=== PATIENT | female | born 1970 | race Hispanic/Latino ===

== ENCOUNTER → 2018-10-23 | Outpatient (CLI) | payer OTHER | END | disposition home or self-care (01) | LOC: SHCH 10:00 | PROVIDERS: ATTEND Internal Medicine Cardiovascular Disease | DX: R94.31 Abnormal electrocardiogram [ECG] [EKG] (principal) | CPT/HCPCS: 93306 ==

== ENCOUNTER 2018-11-09 12:25 | Observation (INO) | payer OTHER ==
[~2018-11-09] VITALS: Ht 162.6 cm; Wt 68.9 kg
[2018-11-09 14:13] LABS: BASOPHILS % (AUTO) 0.5 % (0.0-5.0); EOSINOPHILS % (AUTO) 1.6 % (0.0-8.0); HEMATOCRIT 42.8 % (36-48); LYMPHOCYTES % (AUTO) 18.1 % (21.0-51.0); MEAN CORPUSCULAR HEMOGLOBIN 30.9 pg (27.0-33.0); MEAN CORPUSCULAR HGB CONC 32.9 g/dL (32.0-36.0); MEAN CORPUSCULAR VOLUME 93.8 fL (79-99); MONOCYTES % (AUTO) 5.1 % (3.0-13.0); NEUTROPHILS % (AUTO) 74.7 % (40.0-77.0); NUCLEATED RED BLOOD CELLS 0.1 % (0.0-0.19); PLATELET COUNT (AUTO) 283 K/uL (130-400); RED BLOOD CELL COUNT(AUTO) 4.57 MIL/uL (4.00-5.50); RED CELL DISTRIBUTION WIDTH 13.6 % (11.0-15.5); WHITE BLOOD COUNT (AUTO) 8.8 K/uL (4.8-10.8)
[2018-11-09] MEDS ORDERED: ONDANSETRON HCL 4 MG/2 ML VIAL ONE (14:19)
[2018-11-09] MEDS ORDERED: KETOROLAC TROMETHAMINE 30MG/ML ONE ×2 (14:19→22:51)
[2018-11-09] MEDS ORDERED: ZOSYN 3.375GM+NS 50ML 50 ML IV ONE (14:19)
[2018-11-09] MEDS ORDERED: SODIUM CHLORIDE 0.9% 50 ML IV ONE (14:20)
[2018-11-09] MEDS ORDERED: LACTATED RINGERS 1000ML 1,000 ML IV ONE (14:20)
[2018-11-09 14:41] LABS: POTASSIUM 3.6 mmol/L (3.5-5.1)
[2018-11-09 14:46] LABS: ALBUMIN 3.6 g/dL (3.5-5.0); BILIRUBIN,TOTAL 0.5 mg/dL (0.2-1.0); TOTAL PROTEIN, SERUM 7.2 g/dL (6.0-8.3)
--- NOTE | 2018-11-09 15:00 | NUR ---
DIRECT ADMIT PATIENT RECEIVED FROM ER A DIRECT ADMIT FROM DR. HOLLEY. BLOOD HAS BEEN DRAWN IN ER AND IV HAS BEEN STARTED. SHE WAS MEDICATED FOR PAIN PRIOR TO ARRIVAL AND DENIES PAIN AT THIS TIME. SHE HAS BEEN ORIENTED TO ROOM AND USE OF CALL LIGHT.
[2018-11-09 15:35] VITALS: BP 131/86
[2018-11-09] MEDS ORDERED: MORPHINE SULFATE 2 MG/ML 1ML SYG IVP PRN (18:00)
[2018-11-09] MEDS: LACTATED RINGERS 1000ML 1,000 ML IV SCH (18:00)
[2018-11-09 19:20] VITALS: BP 126/77
[2018-11-09] MEDS: ZOSYN 3.375GM+NS 50ML 50 ML IV SCH (20:35)
[2018-11-09] MEDS: ONDANSETRON HCL 4 MG/2 ML VIAL IVP PRN (22:59)
[2018-11-09 23:36] VITALS: BP 110/72
[2018-11-10] VITALS (24 sets, daily range): BP systolic 102–148; BP diastolic 60–90
[2018-11-10] MEDS: LACTATED RINGERS 1000ML 1,000 ML IV SCH ×3 (01:26→16:09)
[2018-11-10 04:41] LABS: HEMATOCRIT 36.5 % (36-48); MEAN CORPUSCULAR HEMOGLOBIN 31.3 pg (27.0-33.0); MEAN CORPUSCULAR HGB CONC 33.6 g/dL (32.0-36.0); MEAN CORPUSCULAR VOLUME 93.4 fL (79-99); PLATELET COUNT (AUTO) 247 K/uL (130-400); RED BLOOD CELL COUNT(AUTO) 3.91 MIL/uL (4.00-5.50); RED CELL DISTRIBUTION WIDTH 13.2 % (11.0-15.5); WHITE BLOOD COUNT (AUTO) 8.5 K/uL (4.8-10.8)
[2018-11-10 04:51] LABS: POTASSIUM 3.7 mmol/L (3.5-5.1)
[2018-11-10] MEDS: ZOSYN 3.375GM+NS 50ML 50 ML IV SCH ×3 (05:24→21:18)
--- NOTE | 2018-11-10 07:41 | NUR ---
TO OR PATIENT TRANSFERRED TO OR HOLDING ACCOMPANIED BY SPOUSE. SHE IS IN STABLE CONDITION.
[2018-11-10] MEDS ORDERED: MIDAZOLAM HCL 1 MG/ML 2ML VIAL ONE (07:52)
[2018-11-10] MEDS ORDERED: DEXAMETHASONE SOD PHOSPHATE 10MG/ML 1ML VIAL ONE (07:52)
[2018-11-10] MEDS ORDERED: LIDOCAINE PF 2% 5ML ABBOJECT ONE (07:52)
[2018-11-10] MEDS ORDERED: NEOSTIGMINE 5MG/5ML SYR IV ONE (07:53)
[2018-11-10] MEDS ORDERED: FENTANYL CITRATE PF 50 MCG/1 ML 2ML VIAL ONE (07:53)
[2018-11-10] MEDS ORDERED: PROPOFOL 10 MG/ML 20ML VIAL IV ONE (07:53)
[2018-11-10] MEDS ORDERED: GLYCOPYRROLATE 1 MG/5 ML SYRINGE ONE (07:53)
[2018-11-10] MEDS ORDERED: ONDANSETRON HCL 4 MG/2 ML VIAL ONE (07:53)
[2018-11-10] MEDS ORDERED: ROCURONIUM 10MG/1ML SYR 10 MG/ML ML ONE (07:54)
[2018-11-10] MEDS ORDERED: MEPERIDINE-PF 25 MG/ML SYG ONE (09:19)
[2018-11-10] MEDS: KETOROLAC TROMETHAMINE 30MG/ML IV PRN ×2 (09:50→21:18)
--- NOTE | 2018-11-10 10:14 | NUR ---
POST SURGERY PATIENT RECEIVED FROM PACU IN STABLE CONDITION. FAMILY IS PRESENT IN ROOM. ALL HAVE BEEN REORIENTED TO ROOM AND USE OF CALL LIGHT. POST OP VITAL SIGNS HAVE BEEN INITIATED. DRESSINGS TO ABDOMEN ARE CLEAN AND DRY. BED IS IN LOWEST POSITION AND LOCKED. SHE IS DUE TO VOID.
[2018-11-10] MEDS: ONDANSETRON HCL 4 MG/2 ML VIAL IVP PRN (12:04)
[2018-11-11] MEDS: LACTATED RINGERS 1000ML 1,000 ML IV SCH (02:21)
[2018-11-11 03:40] VITALS: BP 117/70
[2018-11-11] MEDS: ZOSYN 3.375GM+NS 50ML 50 ML IV SCH (05:21)
[2018-11-11] MEDS: KETOROLAC TROMETHAMINE 30MG/ML IV PRN (05:26)
[2018-11-11 07:46] VITALS: BP 132/77
--- NOTE | 2018-11-11 10:00 | NUR ---
SURGEON DR. HOLLEY IN TO SEE PATIENT. NEW ORDERS RECEIVED FOR DISCHARGE.
[2018-11-11] MEDS ORDERED: ACET1TAB12 PO (10:11)
--- NOTE | 2018-11-11 10:55 | NUR ---
INSTRUCTIONS DISCHARGE INSTRUCTIONS GIVEN TO PATIENT AND FAMILY USING TEACH BACK. IV HAS BEEN REMOVED WITH TIP INTACT. DIRECT PRESSURE APPLIED UNTIL BLEEDING CONTROLLED THEN SITE COVERED WITH GAUZE AND SECURED WITH TAPE. NEW PRESCRIPTION PLACED IN PACKET ALONG WITH ALL PRINTED INSTRUCTIONS. F/U APPOINTMENT MADE BY DR. HOLLEY. NO QUESTIONS OR CONCERNS VOICED.
== END 2018-11-11 11:05 | disposition home or self-care (01) ==
LOC: EDH 12:25 → EDHIP 13:50 → 4BH 14:49
PROVIDERS: ADMIT Surgery; ATTEND Surgery
DX: K80.00 Calculus of gallbladder with acute cholecystitis without obstruction (principal); G43.909 Migraine, unspecified, not intractable, without status migrainosus; F32.9 Major depressive disorder, single episode, unspecified; H40.9 Unspecified glaucoma
CPT/HCPCS: 36415 ×2; 47562; 80048; 80053; 85025; 85027; 88304; 96365; 96366 ×3; 96375 ×2; 96376 ×2; 99284; A4450; C1769 ×4; G0378 ×45; J1100; J1885 ×5; J2001; J2175; J2250; J2405 ×4; J2543 ×6; J2704; J2710; J3010; J3490; J7030; J7120 ×7

== ENCOUNTER 2020-04-26 01:10 | Emergency (ER) | payer OTHER ==
[~2020-04-26 01:10] MED LIST: ACET1TAB12 PO
[2020-04-26 03:22] LABS: RAPID GROUP A STREP NEGATIVE (NEGATIVE)
[2020-04-26 03:26] LABS: BASOPHILS % (AUTO) 0.2 % (0.0-5.0); EOSINOPHILS % (AUTO) 0.1 % (0.0-8.0); HEMATOCRIT 43.8 % (36-48); LYMPHOCYTES % (AUTO) 7.8 % (21.0-51.0); MEAN CORPUSCULAR HEMOGLOBIN 31.4 pg (27.0-33.0); MEAN CORPUSCULAR HGB CONC 32.6 g/dL (32.0-36.0); MEAN CORPUSCULAR VOLUME 96.1 fL (79-99); MONOCYTES % (AUTO) 2.9 % (3.0-13.0); NEUTROPHILS % (AUTO) 88.3 % (40.0-77.0); PLATELET COUNT (AUTO) 303 K/uL (130-400); RED BLOOD CELL COUNT(AUTO) 4.56 MIL/uL (4.00-5.50); RED CELL DISTRIBUTION WIDTH 13.2 % (11.0-15.5); WHITE BLOOD COUNT (AUTO) 12.2 K/uL (4.8-10.8)
[2020-04-26 03:35] LABS: CREATININE 0.9 mg/dL (0.5-1.5); POTASSIUM 4.8 mmol/L (3.5-5.1)
[2020-04-26 03:40] LABS: ALBUMIN 3.6 g/dL (3.5-5.0); BILIRUBIN,TOTAL 0.2 mg/dL (0.2-1.0); TOTAL PROTEIN, SERUM 7.4 g/dL (6.0-8.3)
[2020-04-26] MEDS ORDERED: SODIUM CHLORIDE 0.9% 1000ML 1,000 ML IV ONE (04:38)
[2020-04-26] MEDS ORDERED: IOHEXOL-350 75 ML VIAL IV ONE ×2 (04:41→05:25)
== END 2020-04-26 08:03 | disposition home or self-care (01) ==
LOC: EDH 01:10
DX: J40 Bronchitis, not specified as acute or chronic (principal); R06.00 Dyspnea, unspecified; Z20.828 Contact with and (suspected) exposure to other viral communicable diseases; F31.9 Bipolar disorder, unspecified; G43.909 Migraine, unspecified, not intractable, without status migrainosus; I10 Essential (primary) hypertension
CPT/HCPCS: 36415; 71045; 71275; 80053; 82550; 83605 ×2; 83880; 84484; 85025; 87804 ×2; 87880; 93005; 99285; J7030; Q9967; U0003

== ENCOUNTER → 2020-06-16 | Outpatient (CLI) | payer OTHER | END | disposition home or self-care (01) | LOC: SHCH 10:28 | PROVIDERS: ATTEND Internal Medicine Cardiovascular Disease | DX: I11.9 Hypertensive heart disease without heart failure (principal) | CPT/HCPCS: 93306 ==

== ENCOUNTER → 2020-06-16 | Outpatient (CLI) | payer OTHER | END | disposition home or self-care (01) | LOC: RAH 10:26 | PROVIDERS: ATTEND Internal Medicine Cardiovascular Disease | DX: Z13.6 Encounter for screening for cardiovascular disorders (principal) | CPT/HCPCS: 75571 ==

== ENCOUNTER → 2020-09-07 | Outpatient (CLI) | payer OTHER | END | disposition home or self-care (01) | LOC: RAH 13:23 | PROVIDERS: ATTEND Family Medicine | DX: R92.2 Inconclusive mammogram (principal); R92.8 Other abnormal and inconclusive findings on diagnostic imaging of breast; N63.20 Unspecified lump in the left breast, unspecified quadrant | CPT/HCPCS: 76641; 77065 ==

== ENCOUNTER → 2020-09-24 | Outpatient (CLI) | payer OTHER ==
[2020-09-24 09:07] LABS: INR 0.93 (0.85-1.15); PARTIAL THROMBOPLASTIN TIME 26.4 SEC (26.3-35.5); PROTHROMBIN TIME 10.1 SEC (9.6-11.6)
--- NOTE | 2020-09-24 09:30 | NUR ---
US GUIDED BIOPSY OF LEFT BREAST MASS PROCEDURE PERFORMED BY DR. LOOMIS. PUNCTURE SITE LEFT LATERAL BREAST AND PATIENT TOLERATED PROCEDURE WELL. SPECIMEN X 7 COLLECTED AND SENT TO LAB. TISSUE MARKER DEPLOYED TO BIOPSY SITE. END OF PROCEDURE AT 0950. BIOPSY NEEDLE REMOVED AND DRESSING APPLIED. NO BLEEDING NOTED. DISCHARGE INSTRUCTIONS GIVEN TO PATIENT AND VERBALIZED UNDERSTANDING. DISCHARGED AMBULATORY STABLE @1010, AAO X 3 WITH NO C/O PAIN.
== END | disposition home or self-care (01) ==
LOC: RAH 07:52
PROVIDERS: ATTEND Family Medicine
DX: D24.2 Benign neoplasm of left breast (principal)
CPT/HCPCS: 19083; 36415; 85610; 85730

== ENCOUNTER 2020-11-03 17:59 | Emergency (ER) | payer OTHER ==
[2020-11-03 18:30] LABS: BASOPHILS % (AUTO) 0.5 % (0.0-5.0); EOSINOPHILS % (AUTO) 3.8 % (0.0-8.0); HEMATOCRIT 44.4 % (36-48); LYMPHOCYTES % (AUTO) 25.9 % (21.0-51.0); MEAN CORPUSCULAR HEMOGLOBIN 31.6 pg (27.0-33.0); MEAN CORPUSCULAR HGB CONC 34.5 g/dL (32.0-36.0); MEAN CORPUSCULAR VOLUME 91.7 fL (79-99); MONOCYTES % (AUTO) 6.4 % (3.0-13.0); NEUTROPHILS % (AUTO) 63.2 % (40.0-77.0); PLATELET COUNT (AUTO) 295 K/uL (130-400); RED BLOOD CELL COUNT(AUTO) 4.84 MIL/uL (4.00-5.50); WHITE BLOOD COUNT (AUTO) 9.1 K/uL (4.8-10.8)
[2020-11-03 18:44] LABS: CREATININE 1.1 mg/dL (0.5-1.5); POTASSIUM 3.6 mmol/L (3.5-5.1)
[2020-11-03] MEDS ORDERED: KETOROLAC 30MG VIAL (30MG/ML) ONE (18:47)
[2020-11-03 18:48] LABS: ALBUMIN 3.8 g/dL (3.5-5.0); BILIRUBIN,TOTAL 0.5 mg/dL (0.2-1.0)
[2020-11-03] MEDS ORDERED: CYCLOBENZAPRINE HCL 10 MG TABLET ONE (18:48)
== END 2020-11-03 19:19 | disposition home or self-care (01) ==
LOC: EDH 17:59
DX: G43.909 Migraine, unspecified, not intractable, without status migrainosus (principal); I12.9 Hypertensive chronic kidney disease with stage 1 through stage 4 chronic kidney disease, or unspecified chronic kidney disease; N18.30 Chronic kidney disease, stage 3 unspecified; Z98.51 Tubal ligation status
CPT/HCPCS: 36415; 80053; 85025; 96365; 96375; 99284; J1885

== ENCOUNTER 2020-12-25 02:52 | Inpatient (IN) | payer OTHER ==
[~2020-12-25] VITALS: Ht 162.6 cm; Wt 77.5 kg
[2020-12-25 03:25] LABS: BASOPHILS % (AUTO) 0.1 % (0.0-5.0); EOSINOPHILS % (AUTO) 1.5 % (0.0-8.0); HEMATOCRIT 41.4 % (36-48); MEAN CORPUSCULAR HEMOGLOBIN 31.6 pg (27.0-33.0); MEAN CORPUSCULAR HGB CONC 34.1 g/dL (32.0-36.0); MEAN CORPUSCULAR VOLUME 92.8 fL (79-99); MONOCYTES % (AUTO) 10.4 % (3.0-13.0); NEUTROPHILS % (AUTO) 62.6 % (40.0-77.0); PLATELET COUNT (AUTO) 326 K/uL (130-400); RED BLOOD CELL COUNT(AUTO) 4.46 MIL/uL (4.00-5.50); RED CELL DISTRIBUTION WIDTH 12.7 % (11.0-15.5); WHITE BLOOD COUNT (AUTO) 7.3 K/uL (4.8-10.8)
[2020-12-25 03:42] LABS: CARBON DIOXIDE 29 mmol/L (21-32); CHLORIDE 98 mmol/L (101-111); GLOMERULAR FILTR. RATE CALC 62 mL/min (>60); GLUCOSE,RANDOM 98 mg/dL (70-105); POTASSIUM 3.3 mmol/L (3.5-5.1); SODIUM SERUM 135 mmol/L (136-145); UREA NITROGEN, BLOOD 13 mg/dL (7-18)
[2020-12-25] MEDS ORDERED: CEFTRIAXONE 2GM VIAL ONE (03:48)
[2020-12-25] MEDS ORDERED: 0.9%NACL 50ML 50 ML IV ONE (03:48)
[2020-12-25 03:55] LABS: B-TYPE NATRIURETIC PEPTIDE 14 pg/mL (0-100)
[2020-12-25 03:55] LABS: ABG BASE EXCESS -1.4 mmol/L (-2.0-3.0); ABG HCO3 22.2 mmol/L (21.0-28.0); ABG OXYGEN SATURATION 97.8 % (95.0-99.0); ABG PCO2 34 mmHg (32-45)
[2020-12-25 04:08] LABS: ALANINE AMINOTRANSFERASE 43 U/L (12-78); ASPARTATE AMINOTRANSFERASE 48 U/L (10-37); BILIRUBIN,TOTAL 0.4 mg/dL (0.2-1.0); CREATINE KINASE, TOTAL 29 U/L (21-232); MYOGLOBIN 24 ng/mL (10-92); TOTAL PROTEIN, SERUM 8.7 g/dL (6.0-8.3); TROPONIN I < 0.04 ng/mL (0.00-0.06)
[2020-12-25 04:09] LABS: PROTHROMBIN TIME 10.9 SEC (9.6-11.6)
[2020-12-25 04:11] LABS: PARTIAL THROMBOPLASTIN TIME 26.6 SEC (26.3-35.5)
[2020-12-25] MEDS ORDERED: LACTULOSE 20 GM/30 ML UDCUP PO PRN (04:45)
[2020-12-25] MEDS ORDERED: GUAIFENESIN-DM 200/20 MG 10 ML PO PRN (04:45)
[2020-12-25] MEDS ORDERED: ONDANSETRON 4MG INJ IV PRN (04:45)
[2020-12-25] MEDS ORDERED: ACETAMINOPHEN 325 MG TAB PO PRN (04:45)
[2020-12-25] MEDS ORDERED: IOHEXOL-350 75 ML VIAL IV ONE (04:59)
[2020-12-25] MEDS ORDERED: DOXYCYCLINE 100MG+NS 250ML 250 ML IV ONE (05:19)
[2020-12-25] MEDS ORDERED: SOLU-MEDROL 125MG VIAL ONE ×2 (05:19→12:09)
[2020-12-25] MEDS ORDERED: IPRATROPIUM/ALBUTEROL SULFATE 3 ML SOLUTION IH SCH (06:00)
[2020-12-25] MEDS ORDERED: ENOXAPARIN SODIUM 40 MG/0.4 ML SYRINGE SQ ONE (07:33)
[2020-12-25] MEDS ORDERED: FAMOTIDINE 20MG VIAL IV ONE (07:34)
[2020-12-25] MEDS ORDERED: ACETAMINOPHEN 325 MG TAB ONE (07:50)
[2020-12-25 07:58] LABS: APPEARANCE,URINE Clear (CLEAR); BILIRUBIN,URINE Negative (NEGATIVE); COLOR,URINE Yellow (YELLOW); GLUCOSE, URINE (UA) Negative (NEGATIVE); KETONES,URINE Negative (NEGATIVE); LEUKOCYTE ESTERASE ,URINE Moderate (NEGATIVE); NITRATE,URINE Negative (NEGATIVE); OCCULT BLOOD,URINE Negative (NEGATIVE); PROTEIN,URINE Negative (NEGATIVE)
[2020-12-25 08:19] LABS: BACTERIA,URINE Few /HPF (None Seen); RBC,URINE 0-1 /HPF (0-1); SQUAMOUS EPITHELIAL CELL,UR 30-50 /HPF (0-2)
[2020-12-25 08:41] LABS: BASOPHILS % (AUTO) 0.1 % (0.0-5.0); EOSINOPHILS % (AUTO) 1.9 % (0.0-8.0); HEMATOCRIT 37.6 % (36-48); LYMPHOCYTES % (AUTO) 9.8 % (21.0-51.0); MEAN CORPUSCULAR HEMOGLOBIN 30.7 pg (27.0-33.0); MEAN CORPUSCULAR HGB CONC 33.5 g/dL (32.0-36.0); MEAN CORPUSCULAR VOLUME 91.7 fL (79-99); MONOCYTES % (AUTO) 3.6 % (3.0-13.0); NEUTROPHILS % (AUTO) 84.1 % (40.0-77.0); PLATELET COUNT (AUTO) 299 K/uL (130-400); RED CELL DISTRIBUTION WIDTH 12.6 % (11.0-15.5); WHITE BLOOD COUNT (AUTO) 8.5 K/uL (4.8-10.8)
[2020-12-25 08:48] LABS: CREATININE 0.9 mg/dL (0.5-1.5); POTASSIUM 3.9 mmol/L (3.5-5.1)
[2020-12-25] MEDS: ALBUTEROL INHALER 90MCG/INH IH SCH ×2 (12:00→17:49)
[2020-12-25 13:45] LABS: CRP QUANTITATIVE 192.9 mg/L (0.00-9.0)
[2020-12-25 19:00] VITALS: BP 124/62
[2020-12-25] MEDS ORDERED: MECL-160 PO (19:12)
[2020-12-25] MEDS ORDERED: SUMA100T16 PO (19:12)
[2020-12-25] MEDS ORDERED: LATA7.5D OP (19:12)
[2020-12-25] MEDS ORDERED: TIMO1DRO5 OP (19:12)
[2020-12-25] MEDS ORDERED: AEC81 PO (19:12)
[2020-12-25] MEDS ORDERED: METO-391 PO (19:12)
[2020-12-25] MEDS ORDERED: EREN70AU2 SQ (19:12)
[2020-12-25] MEDS ORDERED: OMEP-420 PO (19:13)
[2020-12-25] MEDS ORDERED: LORA10TA7 PO (19:13)
[2020-12-25] MEDS ORDERED: FISH12002 PO (19:14)
[2020-12-25] MEDS ORDERED: ALBU10PO MC (19:19)
[2020-12-25] MEDS ORDERED: VITA1CAP PO (19:19)
[2020-12-25] MEDS ORDERED: BUDE10.26 IH (19:19)
[2020-12-25] MEDS ORDERED: MV-M1TAB20 PO (19:19)
[2020-12-25] MEDS: DORZOLAMIDE HCL/TIMOLOL MALEAT DROPS 10 ML BOTTLE OP SCH ×2 (21:00→22:07)
[2020-12-25] MEDS: DOXYCYCLINE 100MG+NS 250ML 250 ML IV SCH ×2 (21:42→21:44)
[2020-12-25] MEDS: CEFTRIAXONE 1G VIAL IV SCH (21:42)
[2020-12-25] MEDS: SOLU-MEDROL 125MG VIAL IV SCH ×3 (21:42→21:49)
[2020-12-25] MEDS: ENOXAPARIN SODIUM 40 MG/0.4 ML SYRINGE SQ SCH (21:43)
[2020-12-25] MEDS: FLUTICASONE/VILANTEROL 1 EACH AER.POW.BA IH SCH (21:43)
[2020-12-25] MEDS: FAMOTIDINE 20MG VIAL IV SCH ×2 (21:43→21:49)
[2020-12-25] MEDS: CYCLOBENZAPRINE HCL 10 MG TABLET PO SCH (21:49)
[2020-12-25] MEDS: METOPROLOL TARTRATE 50 MG TAB PO SCH (21:49)
[2020-12-25] MEDS: LATANOPROST 2.5 ML DROPS OU SCH (21:49)
[2020-12-25 23:00] VITALS: BP 117/58
[2020-12-26 03:00] VITALS: BP 116/56
[2020-12-26 04:22] LABS: BASOPHILS % (AUTO) 0.1 % (0.0-5.0); HEMATOCRIT 36.5 % (36-48); LYMPHOCYTES % (AUTO) 8.1 % (21.0-51.0); MEAN CORPUSCULAR HEMOGLOBIN 30.3 pg (27.0-33.0); MEAN CORPUSCULAR HGB CONC 32.9 g/dL (32.0-36.0); MEAN CORPUSCULAR VOLUME 92.2 fL (79-99); MONOCYTES % (AUTO) 3.6 % (3.0-13.0); NEUTROPHILS % (AUTO) 87.7 % (40.0-77.0); PLATELET COUNT (AUTO) 346 K/uL (130-400); RED BLOOD CELL COUNT(AUTO) 3.96 MIL/uL (4.00-5.50); RED CELL DISTRIBUTION WIDTH 12.6 % (11.0-15.5); WHITE BLOOD COUNT (AUTO) 14.6 K/uL (4.8-10.8)
[2020-12-26] MEDS: CEFTRIAXONE 1G VIAL IV SCH (05:13)
[2020-12-26] MEDS: DOXYCYCLINE 100MG+NS 250ML 250 ML IV SCH ×2 (05:13→17:45)
[2020-12-26] MEDS: SOLU-MEDROL 125MG VIAL IV SCH ×2 (05:14→10:53)
[2020-12-26] MEDS: ALBUTEROL INHALER 90MCG/INH IH SCH ×4 (05:14→17:45)
[2020-12-26] MEDS: FLUTICASONE/VILANTEROL 1 EACH AER.POW.BA IH SCH (08:46)
[2020-12-26] MEDS: FAMOTIDINE 20MG VIAL IV SCH ×2 (08:46→21:48)
[2020-12-26] MEDS: DULOXETINE HCL 30 MG CAP PO SCH (08:46)
[2020-12-26] MEDS: ENOXAPARIN SODIUM 40 MG/0.4 ML SYRINGE SQ SCH (08:46)
[2020-12-26] MEDS: DORZOLAMIDE HCL/TIMOLOL MALEAT DROPS 10 ML BOTTLE OP SCH ×2 (08:50→21:48)
[2020-12-26] MEDS: LATANOPROST 2.5 ML DROPS OU SCH ×2 (08:50→21:48)
[2020-12-26 08:51] VITALS: BP 96/50
[2020-12-26] MEDS: METOPROLOL TARTRATE 50 MG TAB PO SCH ×2 (08:51→21:47)
[2020-12-26 12:30] VITALS: BP 110/64
[2020-12-26] MEDS: METOCLOPRAMIDE 5 MG TABLET PO SCH ×3 (12:53→21:47)
[2020-12-26 16:00] VITALS: BP 112/65
[2020-12-26 19:00] VITALS: BP 122/62
[2020-12-26 21:23] VITALS: BP 148/68
[2020-12-26] MEDS: PREDNISONE 10 MG TABLET PO SCH (21:47)
[2020-12-26] MEDS: CYCLOBENZAPRINE HCL 10 MG TABLET PO SCH (21:48)
[2020-12-27] VITALS: BP 130/67
[2020-12-27] MEDS: ALBUTEROL INHALER 90MCG/INH IH SCH ×4 (00:44→16:45)
[2020-12-27 04:00] VITALS: BP 122/73
[2020-12-27 05:03] LABS: BASOPHILS % (AUTO) 0.1 % (0.0-5.0); HEMATOCRIT 34.8 % (36-48); LYMPHOCYTES % (AUTO) 5.4 % (21.0-51.0); MEAN CORPUSCULAR HEMOGLOBIN 30.9 pg (27.0-33.0); MEAN CORPUSCULAR HGB CONC 33.3 g/dL (32.0-36.0); MEAN CORPUSCULAR VOLUME 92.8 fL (79-99); MONOCYTES % (AUTO) 4.2 % (3.0-13.0); NEUTROPHILS % (AUTO) 89.3 % (40.0-77.0); PLATELET COUNT (AUTO) 384 K/uL (130-400); RED BLOOD CELL COUNT(AUTO) 3.75 MIL/uL (4.00-5.50); WHITE BLOOD COUNT (AUTO) 20.5 K/uL (4.8-10.8)
[2020-12-27 05:16] LABS: POTASSIUM 3.8 mmol/L (3.5-5.1)
[2020-12-27] MEDS: FLUTICASONE/VILANTEROL 1 EACH AER.POW.BA IH SCH (05:53)
[2020-12-27] MEDS: CEFTRIAXONE 1G VIAL IV SCH (05:58)
[2020-12-27] MEDS: METOCLOPRAMIDE 5 MG TABLET PO SCH ×4 (05:58→21:49)
[2020-12-27] MEDS: DOXYCYCLINE 100MG+NS 250ML 250 ML IV SCH ×2 (05:58→16:45)
[2020-12-27 08:00] VITALS: BP 132/64
[2020-12-27] MEDS: LATANOPROST 2.5 ML DROPS OU SCH ×2 (08:27→21:50)
[2020-12-27] MEDS: FAMOTIDINE 20MG VIAL IV SCH ×2 (08:27→21:49)
[2020-12-27] MEDS: DULOXETINE HCL 30 MG CAP PO SCH (08:27)
[2020-12-27] MEDS: ENOXAPARIN SODIUM 40 MG/0.4 ML SYRINGE SQ SCH (08:27)
[2020-12-27] MEDS: PREDNISONE 10 MG TABLET PO SCH (08:27)
[2020-12-27] MEDS: DORZOLAMIDE HCL/TIMOLOL MALEAT DROPS 10 ML BOTTLE OP SCH ×2 (08:27→21:50)
[2020-12-27] MEDS: METOPROLOL TARTRATE 50 MG TAB PO SCH ×2 (08:41→21:49)
[2020-12-27] MEDS: SOLU-MEDROL 125MG VIAL IVP SCH ×2 (08:45→16:45)
[2020-12-27] MEDS ORDERED: PHARMACY COMMUNICATION MISC SCH (09:15)
[2020-12-27 12:00] VITALS: BP 128/72
[2020-12-27] MEDS ORDERED: REMDESIVIR (EUA) 520 200 MG in 0.9% NACL 250ML 250 ML IV ONE (14:00)
[2020-12-27] MEDS ORDERED: COMPOUND IV REFRIGERATED 1 EACH IVSOLN MISC PRN (14:00)
[2020-12-27 16:00] VITALS: BP 153/78
[2020-12-27 19:59] VITALS: BP 135/72
[2020-12-27] MEDS: CYCLOBENZAPRINE HCL 10 MG TABLET PO SCH (21:49)
[2020-12-28] VITALS (7 sets, daily range): BP systolic 107–147; BP diastolic 53–72
[2020-12-28 04:14] LABS: ALBUMIN 2.8 g/dL (3.5-5.0); BILIRUBIN,DIRECT 0.1 mg/dL (0.0-0.3); BILIRUBIN,TOTAL 0.3 mg/dL (0.2-1.0); CREATININE 0.9 mg/dL (0.5-1.5); POTASSIUM 3.4 mmol/L (3.5-5.1); TOTAL PROTEIN, SERUM 7.1 g/dL (6.0-8.3)
[2020-12-28] MEDS: CEFTRIAXONE 1G VIAL IV SCH (05:16)
[2020-12-28] MEDS: DOXYCYCLINE 100MG+NS 250ML 250 ML IV SCH ×2 (05:16→17:14)
[2020-12-28] MEDS: SOLU-MEDROL 125MG VIAL IVP SCH ×3 (05:16→17:14)
[2020-12-28] MEDS: ALBUTEROL INHALER 90MCG/INH IH SCH ×4 (05:17→17:14)
[2020-12-28] MEDS: REMDESIVIR LABS MISC SCH (05:18)
[2020-12-28] MEDS: METOCLOPRAMIDE 5 MG TABLET PO SCH ×4 (06:32→21:13)
[2020-12-28] MEDS ORDERED: KCL 20 MEQ ERTAB PO PRN (07:45)
[2020-12-28] MEDS ORDERED: POTASSIUM CHLORIDE 20MEQ/100ML 100 ML IV PRN (07:45)
[2020-12-28] MEDS ORDERED: POTASSIUM CHLORIDE 10% ELIXIR 20 MEQ/15 ML UDCUP PO PRN (07:45)
[2020-12-28] MEDS: DORZOLAMIDE HCL/TIMOLOL MALEAT DROPS 10 ML BOTTLE OP SCH ×2 (09:12→21:13)
[2020-12-28] MEDS: FLUTICASONE/VILANTEROL 1 EACH AER.POW.BA IH SCH (09:12)
[2020-12-28] MEDS: LATANOPROST 2.5 ML DROPS OU SCH ×2 (09:12→21:13)
[2020-12-28] MEDS: METOPROLOL TARTRATE 50 MG TAB PO SCH ×2 (09:47→21:13)
[2020-12-28] MEDS: DULOXETINE HCL 30 MG CAP PO SCH (09:47)
[2020-12-28] MEDS: FAMOTIDINE 20MG VIAL IV SCH ×2 (09:47→21:12)
[2020-12-28] MEDS: ENOXAPARIN SODIUM 40 MG/0.4 ML SYRINGE SQ SCH (09:48)
[2020-12-28] MEDS ORDERED: 0.9%NACL 100ML 100 ML IV ONE (14:35)
[2020-12-28] MEDS: REMDESIVIR (EUA) 520 100 MG in 0.9% NACL 250ML 250 ML IV SCH (15:08)
[2020-12-28] MEDS ORDERED: TRAMADOL HCL 50 MG TABLET PO PRN (15:30)
[2020-12-28] MEDS: CYCLOBENZAPRINE HCL 10 MG TABLET PO SCH (21:13)
[2020-12-29] MEDS: ALBUTEROL INHALER 90MCG/INH IH SCH ×4 (00:20→17:00)
[2020-12-29] MEDS: SOLU-MEDROL 125MG VIAL IVP SCH ×3 (00:45→17:00)
[2020-12-29] MEDS: DOXYCYCLINE 100MG+NS 250ML 250 ML IV SCH ×2 (02:59→17:01)
[2020-12-29] MEDS: CEFTRIAXONE 1G VIAL IV SCH (03:00)
[2020-12-29] MEDS ORDERED: 0.9% NACL 500ML IV.SOLN 500 ML IV ONE (03:19)
[2020-12-29 03:23] VITALS: BP 134/51
[2020-12-29 04:16] LABS: HEMATOCRIT 37.6 % (36-48); MEAN CORPUSCULAR HEMOGLOBIN 31.1 pg (27.0-33.0); MEAN CORPUSCULAR VOLUME 91.3 fL (79-99); RED BLOOD CELL COUNT(AUTO) 4.12 MIL/uL (4.00-5.50); RED CELL DISTRIBUTION WIDTH 12.7 % (11.0-15.5); WHITE BLOOD COUNT (AUTO) 14.8 K/uL (4.8-10.8)
[2020-12-29 04:26] LABS: CREATININE 1.1 mg/dL (0.5-1.5); CRP QUANTITATIVE 10.9 mg/L (0.00-9.0); POTASSIUM 4.3 mmol/L (3.5-5.1)
[2020-12-29] MEDS: REMDESIVIR LABS MISC SCH (05:50)
[2020-12-29 08:00] VITALS: BP 146/65
[2020-12-29] MEDS: FLUTICASONE/VILANTEROL 1 EACH AER.POW.BA IH SCH (08:01)
[2020-12-29] MEDS: DORZOLAMIDE HCL/TIMOLOL MALEAT DROPS 10 ML BOTTLE OP SCH ×2 (08:01→21:10)
[2020-12-29] MEDS: LATANOPROST 2.5 ML DROPS OU SCH ×2 (08:01→21:10)
[2020-12-29] MEDS: METOCLOPRAMIDE 5 MG TABLET PO SCH ×4 (08:19→21:09)
[2020-12-29] MEDS: DULOXETINE HCL 30 MG CAP PO SCH (08:20)
[2020-12-29] MEDS: METOPROLOL TARTRATE 50 MG TAB PO SCH ×2 (08:20→21:09)
[2020-12-29] MEDS: FAMOTIDINE 20MG VIAL IV SCH ×2 (08:20→21:09)
[2020-12-29] MEDS: ENOXAPARIN SODIUM 40 MG/0.4 ML SYRINGE SQ SCH (08:20)
[2020-12-29 12:00] VITALS: BP 127/53
[2020-12-29 13:28] LABS: ALBUMIN 2.6 g/dL (3.5-5.0); BILIRUBIN,DIRECT 0.1 mg/dL (0.0-0.3); BILIRUBIN,TOTAL 0.2 mg/dL (0.2-1.0); TOTAL PROTEIN, SERUM 6.6 g/dL (6.0-8.3)
[2020-12-29] MEDS: REMDESIVIR (EUA) 520 100 MG in 0.9% NACL 250ML 250 ML IV SCH (15:22)
[2020-12-29 16:00] VITALS: BP 122/63
[2020-12-29 20:00] VITALS: BP 150/82
[2020-12-29] MEDS: CYCLOBENZAPRINE HCL 10 MG TABLET PO SCH (21:09)
[2020-12-30] MEDS: ALBUTEROL INHALER 90MCG/INH IH SCH ×5 (01:05→23:58)
[2020-12-30] MEDS: SOLU-MEDROL 125MG VIAL IVP SCH ×4 (01:14→23:58)
[2020-12-30 04:23] VITALS: BP 119/71
[2020-12-30] MEDS: ACETAMINOPHEN 325 MG TAB PO PRN ×3 (04:32→06:09)
[2020-12-30] MEDS: CEFTRIAXONE 1G VIAL IV SCH (04:33)
[2020-12-30] MEDS: DOXYCYCLINE 100MG+NS 250ML 250 ML IV SCH ×2 (04:33→17:20)
[2020-12-30 05:15] LABS: HEMATOCRIT 38.6 % (36-48); MEAN CORPUSCULAR HEMOGLOBIN 31.3 pg (27.0-33.0); MEAN CORPUSCULAR HGB CONC 34.7 g/dL (32.0-36.0); MEAN CORPUSCULAR VOLUME 90.2 fL (79-99); RED BLOOD CELL COUNT(AUTO) 4.28 MIL/uL (4.00-5.50); RED CELL DISTRIBUTION WIDTH 12.6 % (11.0-15.5); WHITE BLOOD COUNT (AUTO) 15.7 K/uL (4.8-10.8)
[2020-12-30 05:30] LABS: CRP QUANTITATIVE 6.3 mg/L (0.00-9.0); MAGNESIUM 1.9 mg/dL (1.80-2.40); POTASSIUM 3.8 mmol/L (3.5-5.1)
[2020-12-30] MEDS: METOCLOPRAMIDE 5 MG TABLET PO SCH ×4 (06:09→20:01)
[2020-12-30] MEDS: REMDESIVIR LABS MISC SCH (06:09)
[2020-12-30] MEDS: METOPROLOL TARTRATE 50 MG TAB PO SCH ×2 (07:45→20:00)
[2020-12-30] MEDS: DORZOLAMIDE HCL/TIMOLOL MALEAT DROPS 10 ML BOTTLE OP SCH ×2 (07:45→20:02)
[2020-12-30] MEDS: DULOXETINE HCL 30 MG CAP PO SCH (07:45)
[2020-12-30] MEDS: ENOXAPARIN SODIUM 40 MG/0.4 ML SYRINGE SQ SCH (07:45)
[2020-12-30] MEDS: LATANOPROST 2.5 ML DROPS OU SCH ×2 (07:45→20:02)
[2020-12-30] MEDS: FAMOTIDINE 20MG VIAL IV SCH ×2 (07:46→20:00)
[2020-12-30] MEDS: FLUTICASONE/VILANTEROL 1 EACH AER.POW.BA IH SCH (07:46)
[2020-12-30 08:00] VITALS: BP 140/63
[2020-12-30 12:00] VITALS: BP 134/72
[2020-12-30] MEDS: REMDESIVIR (EUA) 520 100 MG in 0.9% NACL 250ML 250 ML IV SCH (14:34)
[2020-12-30 16:00] VITALS: BP 138/66
[2020-12-30 19:56] VITALS: BP 149/86
[2020-12-30] MEDS: CYCLOBENZAPRINE HCL 10 MG TABLET PO SCH (20:00)
[2020-12-30 23:07] VITALS: BP 145/81
[2020-12-31 03:37] VITALS: BP 126/60
[2020-12-31] MEDS: CEFTRIAXONE 1G VIAL IV SCH (04:20)
[2020-12-31] MEDS: DOXYCYCLINE 100MG+NS 250ML 250 ML IV SCH ×2 (04:20→16:54)
[2020-12-31] MEDS: ALBUTEROL INHALER 90MCG/INH IH SCH ×3 (05:53→16:54)
[2020-12-31] MEDS: REMDESIVIR LABS MISC SCH (05:53)
[2020-12-31 05:59] LABS: BASOPHILS % (AUTO) 0.3 % (0.0-5.0); HEMATOCRIT 39.1 % (36-48); LYMPHOCYTES % (AUTO) 7.1 % (21.0-51.0); MEAN CORPUSCULAR HEMOGLOBIN 31.2 pg (27.0-33.0); MEAN CORPUSCULAR HGB CONC 34.3 g/dL (32.0-36.0); MEAN CORPUSCULAR VOLUME 91.1 fL (79-99); MONOCYTES % (AUTO) 5.3 % (3.0-13.0); NEUTROPHILS % (AUTO) 83.3 % (40.0-77.0); NUCLEATED RED BLOOD CELLS 0.1 % (0.0-0.19); PLATELET COUNT (AUTO) 466 K/uL (130-400); RED BLOOD CELL COUNT(AUTO) 4.29 MIL/uL (4.00-5.50); RED CELL DISTRIBUTION WIDTH 12.6 % (11.0-15.5); WHITE BLOOD COUNT (AUTO) 15.8 K/uL (4.8-10.8)
[2020-12-31] MEDS: ACETAMINOPHEN 325 MG TAB PO PRN (06:09)
[2020-12-31 06:23] LABS: ALBUMIN 2.4 g/dL (3.5-5.0); BILIRUBIN,TOTAL 0.3 mg/dL (0.2-1.0); CREATININE 1.2 mg/dL (0.5-1.5); CRP QUANTITATIVE 5.6 mg/L (0.00-9.0); TOTAL PROTEIN, SERUM 5.7 g/dL (6.0-8.3)
[2020-12-31] MEDS: METOCLOPRAMIDE 5 MG TABLET PO SCH ×4 (06:31→20:07)
[2020-12-31] MEDS: DULOXETINE HCL 30 MG CAP PO SCH (08:39)
[2020-12-31] MEDS: METOPROLOL TARTRATE 50 MG TAB PO SCH ×2 (08:39→20:07)
[2020-12-31] MEDS: FAMOTIDINE 20MG VIAL IV SCH ×2 (08:39→20:06)
[2020-12-31] MEDS: ENOXAPARIN SODIUM 40 MG/0.4 ML SYRINGE SQ SCH (08:40)
[2020-12-31] MEDS: DEXAMETHASONE 4 MG TAB PO SCH (08:40)
[2020-12-31] MEDS: LATANOPROST 2.5 ML DROPS OU SCH ×2 (08:44→20:06)
[2020-12-31] MEDS: DORZOLAMIDE HCL/TIMOLOL MALEAT DROPS 10 ML BOTTLE OP SCH ×2 (08:44→20:06)
[2020-12-31] MEDS: FLUTICASONE/VILANTEROL 1 EACH AER.POW.BA IH SCH (08:44)
[2020-12-31 08:52] VITALS: BP 116/75
[2020-12-31 12:16] VITALS: BP 142/70
[2020-12-31] MEDS: REMDESIVIR (EUA) 520 100 MG in 0.9% NACL 250ML 250 ML IV SCH (14:28)
[2020-12-31 16:45] VITALS: BP 134/76
[2020-12-31] MEDS: CYCLOBENZAPRINE HCL 10 MG TABLET PO SCH (20:07)
[2020-12-31 20:55] VITALS: BP 137/72
[2021-01-01] MEDS: ALBUTEROL INHALER 90MCG/INH IH SCH ×3 (00:39→12:13)
[2021-01-01 00:56] VITALS: BP 121/73
[2021-01-01] MEDS: CEFTRIAXONE 1G VIAL IV SCH (03:54)
[2021-01-01 04:29] VITALS: BP 130/72
[2021-01-01] MEDS: REMDESIVIR LABS MISC SCH (05:45)
[2021-01-01 05:47] LABS: BASOPHILS % (AUTO) 0.3 % (0.0-5.0); HEMATOCRIT 40.5 % (36-48); LYMPHOCYTES % (AUTO) 15.7 % (21.0-51.0); MEAN CORPUSCULAR HEMOGLOBIN 30.4 pg (27.0-33.0); MEAN CORPUSCULAR HGB CONC 33.6 g/dL (32.0-36.0); MEAN CORPUSCULAR VOLUME 90.6 fL (79-99); NEUTROPHILS % (AUTO) 68.6 % (40.0-77.0); PLATELET COUNT (AUTO) 452 K/uL (130-400); RED BLOOD CELL COUNT(AUTO) 4.47 MIL/uL (4.00-5.50); RED CELL DISTRIBUTION WIDTH 12.8 % (11.0-15.5)
[2021-01-01] MEDS: METOCLOPRAMIDE 5 MG TABLET PO SCH ×2 (05:53→12:09)
[2021-01-01 06:00] LABS: POTASSIUM 4.1 mmol/L (3.5-5.1)
[2021-01-01] MEDS: DULOXETINE HCL 30 MG CAP PO SCH (08:15)
[2021-01-01] MEDS: METOPROLOL TARTRATE 50 MG TAB PO SCH (08:15)
[2021-01-01] MEDS: FAMOTIDINE 20MG VIAL IV SCH (08:15)
[2021-01-01] MEDS: DEXAMETHASONE 4 MG TAB PO SCH (08:16)
[2021-01-01] MEDS: ENOXAPARIN SODIUM 40 MG/0.4 ML SYRINGE SQ SCH (08:16)
[2021-01-01] MEDS: DORZOLAMIDE HCL/TIMOLOL MALEAT DROPS 10 ML BOTTLE OP SCH (08:17)
[2021-01-01] MEDS: LATANOPROST 2.5 ML DROPS OU SCH (08:17)
[2021-01-01] MEDS: FLUTICASONE/VILANTEROL 1 EACH AER.POW.BA IH SCH (08:17)
[2021-01-01 08:18] VITALS: BP 110/74
[2021-01-01] MEDS ORDERED: PANT40TA55 PO (11:40)
[2021-01-01] MEDS ORDERED: APIX2.5T PO (11:40)
[2021-01-01] MEDS ORDERED: DEXA6TAB PO (11:40)
[2021-01-01] MEDS ORDERED: CEFD300C3 PO (11:42)
[2021-01-01 12:24] VITALS: BP 116/76
[2021-01-01 16:16] VITALS: BP 131/75
== END 2021-01-01 17:00 | disposition home or self-care (01) | DRG 177 ==
LOC: EDH 02:52 → EDHIP 04:58 → 2AH 15:59
PROVIDERS: ADMIT Internal Medicine; ATTEND Internal Medicine
PROC: XW033E5 Introduction of Remdesivir Anti-infective into Peripheral Vein, Percutaneous Approach, New Technology Group 5 (ICD-10-PCS; principal; 2020-12-27)
DX: U07.1 COVID-19 (principal); J96.01 Acute respiratory failure with hypoxia; J12.82 Pneumonia due to coronavirus disease 2019; J15.211 Pneumonia due to Methicillin susceptible Staphylococcus aureus; E44.0 Moderate protein-calorie malnutrition; E87.1 Hypo-osmolality and hyponatremia; R78.81 Bacteremia; D68.59 Other primary thrombophilia; N18.30 Chronic kidney disease, stage 3 unspecified; R53.82 Chronic fatigue, unspecified; I12.9 Hypertensive chronic kidney disease with stage 1 through stage 4 chronic kidney disease, or unspecified chronic kidney disease; E87.6 Hypokalemia; G43.909 Migraine, unspecified, not intractable, without status migrainosus; F32.9 Major depressive disorder, single episode, unspecified; H40.9 Unspecified glaucoma; M79.7 Fibromyalgia; J84.89 Other specified interstitial pulmonary diseases; E66.3 Overweight; J45.909 Unspecified asthma, uncomplicated; E78.5 Hyperlipidemia, unspecified; D64.9 Anemia, unspecified; Z68.29 Body mass index [BMI] 29.0-29.9, adult; Z90.49 Acquired absence of other specified parts of digestive tract; Z82.3 Family history of stroke; Z83.3 Family history of diabetes mellitus; Z80.49 Family history of malignant neoplasm of other genital organs; Z83.6 Family history of other diseases of the respiratory system; Z82.49 Family history of ischemic heart disease and other diseases of the circulatory system
CPT/HCPCS: 36415; 36600; 71045; 71275; 80048; 80053; 80076; 81001; 82550; 82728; 82803; 82948; 83605; 83615; 83735; 83874; 83880; 84145; 84484; 85025; 85027; 85378; 85610; 85651; 85730; 86140; 86900; 86901; 87040; 87071; 87077; 87088; 87186; 87205; 87426; 87449; 87804; 93005; 93306; 93356; 93970; 94664; 94667; 94760; G0378; J0696; J1650; J2930; J3490; J7040; J7050; J7512; J8540; Q9967; U0003